=== PATIENT | male | born 1995 | race Caucasian/White ===

== ENCOUNTER 2024-01-28 02:43 | Emergency (ER) | payer SELFPAY ==
[~2024-01-28] VITALS: Ht 177.8 cm; Wt 81.3 kg
[2024-01-28 03:16] VITALS: O2SAT 97
[2024-01-28] MEDS ORDERED: AMOX-494 MT (05:43)
[2024-01-28] MEDS ORDERED: IBUP-2030 MT (05:43)
[2024-01-28] MEDS: IBUPROFEN 800MG TABLET PO ONE (05:48)
[2024-01-28 05:49] VITALS: BP 121/68; PULSE 69; RESP 20; TEMP 36.83628; O2SAT 98
== END 2024-01-28 05:49 ==
LOC: ER 02:43
DX: S02.5XXA Fracture of tooth (traumatic), initial encounter for closed fracture (principal); W19.XXXA Unspecified fall, initial encounter; Y93.89 Activity, other specified; Y92.89 Other specified places as the place of occurrence of the external cause; Y99.8 Other external cause status
CPT/HCPCS: 99283